=== PATIENT | male | born 1990 | race Caucasian/White ===

== ENCOUNTER 2019-08-14 11:37 | Emergency (ER) | payer MEDICAID ==
[~2019-08-14] VITALS: Ht 167.6 cm; Wt 60.3 kg
[2019-08-14 11:55] VITALS: BP 117/78
--- NOTE | 2019-08-14 11:55 | NUR ---
PT PLACED IN BED 9.
--- NOTE | 2019-08-14 12:04 | NUR ---
28/M presents to ED with complaints of chest pain for the past 1.5 week. Pt denies injury or trauma. Pt reports that he was sick with cough and cold symptoms the past week. Pt states his employer told him he might have bronchitis and to be checked. Pt states he was sent home from work. Pt c/o worsening pain with palpation or deep inspiration. Lungs clear bilaterally. Pt awake and alert, answering questions appropriately, welsh speaking only. Pt reports a 5/10 pain at this time. Pt did not take any medications at home for pain prior to arrival.
--- NOTE | 2019-08-14 12:26 | NUR ---
EKG AT BEDSIDE
--- NOTE | 2019-08-14 12:40 | NUR ---
Patient being evaluated by DR DELA CRUZ at bedside.
[2019-08-14 13:24] VITALS: BP 117/78
--- NOTE | 2019-08-14 13:24 | NUR ---
Patient discharged with v/s stable. Written and verbal after care instructions given and explained. Patient alert, oriented and verbalized understanding of instructions. Ambulatory with steady gait. All questions addressed prior to discharge. ID band removed. Patient advised to follow up with PMD. Rx of PROMETHAZINE given. Patient educated on indication of medication including possible reaction and side effects. Opportunity to ask questions provided and answered.
== END 2019-08-14 13:24 | disposition home or self-care (01) ==
LOC: MED 11:37
DX: J40 Bronchitis, not specified as acute or chronic (principal); F17.210 Nicotine dependence, cigarettes, uncomplicated; Z88.0 Allergy status to penicillin; Z71.6 Tobacco abuse counseling
CPT/HCPCS: 71045; 93005; 99283; Q0092

== ENCOUNTER 2021-08-18 17:51 | Emergency (ER) | payer SELFPAY ==
[~2021-08-18] VITALS: Ht 160 cm; Wt 63.5 kg
[2021-08-18 18:34] VITALS: BP 108/74
[2021-08-18 21:53] LABS: BASOPHILS % (AUTO) 0.8 % (0.0-2.0); EOSINOPHILS # (AUTO) 0.2 K/uL (0-0.4); EOSINOPHILS % (AUTO) 3.5 % (0.0-4.0); HEMATOCRIT 40.9 % (36-52); HEMOGLOBIN 13.9 g/dL (12.0-18.0); LYMPHOCYTES # (AUTO) 1.4 K/uL (2.0-11.5); LYMPHOCYTES % (AUTO) 23.7 % (20.5-51.1); MEAN CORPUSCULAR HEMOGLOBIN 28 pg (27-31); MEAN CORPUSCULAR HGB CONC 34 g/dL (33-37); MEAN CORPUSCULAR VOLUME 82.4 fL (80-94); MONOCYTES # (AUTO) 0.7 K/uL (0.8-1.0); MONOCYTES % (AUTO) 12.2 % (1.7-9.3); NEUTROPHILS # (AUTO) 3.7 K/uL (1.8-7.7); NEUTROPHILS % (AUTO) 59.8 % (42.2-75.2); PLATELET COUNT (AUTO) 211 K/uL (140-450); RED BLOOD CELL COUNT(AUTO) 4.96 MIL/uL (4.20-6.10); RED CELL DISTRIBUTION WIDTH 14.3 % (11.6-13.7); WHITE BLOOD COUNT (AUTO) 6.1 K/uL (4.8-10.8)
[2021-08-18 22:16] LABS: ANION GAP 9.7 (8-16); CARBON DIOXIDE 32.1 mmol/L (21-32); CREATININE 0.8 mg/dL (0.6-1.3); POTASSIUM 3.8 mmol/L (3.5-5.1); TOTAL BILIRUBIN 0.5 mg/dL (0.0-1.0)
[2021-08-18] MEDS ORDERED: KETOROLAC 30 MG/ML VIAL IVP ONE (23:30)
[2021-08-18] MEDS: KETOROLAC 30 MG/ML VIAL IM ONE (23:42)
[2021-08-19 01:35] VITALS: BP 116/84
== END 2021-08-19 01:32 | disposition home or self-care (01) ==
LOC: MED 17:51
DX: R07.89 Other chest pain (principal); F17.200 Nicotine dependence, unspecified, uncomplicated; Z88.0 Allergy status to penicillin
CPT/HCPCS: 36415; 71045; 80053; 84484; 85025; 93005; 96372; 99285; J1885